=== PATIENT | male | born 1990 | race African-American/Black ===

== ENCOUNTER 2023-05-02 17:19 | Emergency (ER) | payer SELFPAY ==
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
[2023-05-02 17:45] VITALS: BP 127/69; PULSE 107; RESP 18; TEMP 37.2; O2SAT 98
[2023-05-02 22:07] VITALS: PULSE 100; RESP 16; TEMP 36.8; O2SAT 100
[2023-05-02 23:21] VITALS: BP 113/73; PULSE 97; RESP 22; O2SAT 97
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
[2023-05-03] MEDS: ACETAMINOPHEN 500 MG TABLET 1000 MG PO (00:04)
[2023-05-03] MEDS: KETOROLAC 30 MG/ML VIAL (*BKC) IM (00:05)
[2023-05-03 00:09] VITALS: BP 110/72; PULSE 98; RESP 15; TEMP 36.7; O2SAT 99
== END 2023-05-03 00:11 | disposition home or self-care (01) ==
PROVIDERS: Emergency Provider Physician Assistant
DX: R51.9 Headache, unspecified (principal); S39.012A Strain of muscle, fascia and tendon of lower back, initial encounter; V89.2XXA Person injured in unspecified motor-vehicle accident, traffic, initial encounter
CPT/HCPCS: 70450; 72100; 72125; 96372; 99284; A9270; J1885